=== PATIENT | male | born 1975 | race American Indian/Alaskan Native ===

== ENCOUNTER 2020-12-10 19:52 | Emergency (ER) | payer SELFPAY ==
[2020-12-10 20:25] VITALS: BP 105/69
--- NOTE | 2020-12-10 20:27 | Event Note ---
ED Screening Note ED Screening Note: 45 y/o health male presents to ED c/o of syncope while riding in car with sister just prior to arrival with no preceeding symptoms This initial assessment/diagnostic orders/clinical plan/treatment(s) is/are subject to change based on patients health status, clinical progression and re- assessment by fellow clinical providers in the ED. Further treatment and workup at subsequent clinical providers discretion. Patient/guardian urged not to elope from the ED as their condition may be serious if not clinically assessed and managed. Initial orders include: syncope evaluation.
[2020-12-10 20:57] LABS: Basophils # (Auto) 0.2 K/mm3 (0.0-0.1); Basophils % (Auto) 2.7 % (0.0-1.8); Eosinophils % (Auto) 0.5 % (0.0-4.3); Hematocrit 41.4 % (35.5-45.6); Hemoglobin 13.9 gm/dl (11.8-15.2); Lymphocytes # (Auto) 0.7 K/mm3 (1.2-5.4); Lymphocytes % (Auto) 9.8 % (13.4-35.0); Mean Corpuscular HGB Conc 34 % (32-34); Mean Corpuscular Volume 96 fl (84-94); Monocytes # (Auto) 0.5 K/mm3 (0.0-0.8); Monocytes % (Auto) 7.1 % (0.0-7.3); Platelet Count 228 K/mm3 (140-440); Red Blood Count 4.29 M/mm3 (3.65-5.03); Red Cell Distribution Width 14.2 % (13.2-15.2)
--- NOTE | 2020-12-10 21:00 | XRay Report ---
CHEST 2 VIEWS INDICATION / CLINICAL INFORMATION: Syncope. Hypotension. COMPARISON: None available. FINDINGS: SUPPORT DEVICES: None. HEART / MEDIASTINUM: The heart size and pulmonary vasculature are normal. The aorta is normal in tyree bell. LUNGS / PLEURA: No significant pulmonary or pleural abnormality. No pneumothorax. ADDITIONAL FINDINGS: No significant additional findings. IMPRESSION: No acute findings. Signer Name: Oscar Powers MD Signed: 12/10/2020 8:55 PM Workstation Name: [id number]
[2020-12-10 21:06] LABS: Alanine Aminotransferase 14 units/L (7-56); Albumin 3.5 g/dL (3.9-5); Blood Urea Nitrogen 7 mg/dL (9-20); Calcium 8.4 mg/dL (8.4-10.2); Hemolysis Index 13
[2020-12-10 21:07] LABS: BUN/Creatinine Ratio 10
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
--- NOTE | 2020-12-11 00:05 | Emergency Department Report ---
ED Syncope HPI - General Chief Complaint: Syncope Stated Complaint: SYNCOPE Time Seen by Provider: 12/10/20 23:53 Source: patient, EMS - History of Present Illness Initial Comments: Patient is 45 years old male with no significant past medical history. Patient brought to the emergency room via EMS for evaluation of 1 episode of syncope happened while he was sitting in a car. Patient stated that he think that he passed out for a minute. EMS stated that patient initially was hypertensive received normal saline. Patient denied any symptoms prior to this episode. He denied any previous history of syncope. Patient denied any chest pain, shortness of breath, headache, neck pain, weakness numbness or tingling sensation. Patient stated that he was not eating well yesterday. Timing/Prior Episodes: no prior history, single episode today Precipitating Factors: Positive: none Context: sitting Loss of Consciousness: brief (seconds) Current Symptoms: back to normal - Related Data Allergies/Adverse Reactions: Allergies No Known Allergies Allergy (Unverified 12/10/20 20:23) ED Review of Systems ROS: Stated complaint: SYNCOPE Other details as noted in HPI Comment: All other systems reviewed and negative Constitutional: denies: chills, fever Respiratory: denies: cough, shortness of breath, SOB with exertion, SOB at rest Cardiovascular: denies: chest pain, palpitations Gastrointestinal: denies: abdominal pain, nausea, vomiting, diarrhea, constipation, hematemesis, melena Neurological: denies: headache, weakness, numbness, paresthesias, confusion, abnormal gait ED Past Medical Hx - Past Medical History Previous Medical History?: Yes Additional medical history: "bad hip" - Social History Smoking Status: Never Smoker Substance Use Type: Alcohol ED Physical Exam - General Limitations: No Limitations General appearance: alert, in no apparent distress - Head Head exam: Present: atraumatic, normocephalic, normal inspection - Eye Eye exam: Present: normal appearance, PERRL - ENT ENT exam: Present: mucous membranes dry - Neck Neck exam: Present: normal inspection, full ROM. Absent: tenderness, meningismus - Respiratory Respiratory exam: Present: normal lung sounds bilaterally - Cardiovascular Cardiovascular Exam: Present: regular rate, normal rhythm, normal heart sounds - GI/Abdominal GI/Abdominal exam: Present: soft, normal bowel sounds. Absent: distended, tenderness, guarding, rebound, rigid, organomegaly, mass, bruit, pulsatile mass, hernia - Extremities Exam Extremities exam: Present: normal inspection, full ROM, normal capillary refill. Absent: tenderness, pedal edema, joint swelling, calf tenderness - Back Exam Back exam: Present: normal inspection, full ROM. Absent: CVA tenderness (R), CVA tenderness (L) - Neurological Exam Neurological exam: Present: alert, oriented X3, CN II-XII intact, normal gait, reflexes normal - Psychiatric Psychiatric exam: Present: normal mood - Skin Skin exam: Present: warm, intact, normal color ED Course Vital Signs 12/10/20 20:23 Temperature 98.0 F Pulse Rate 68 Respiratory 18 Rate Blood Pressure 105/69 O2 Sat by Pulse 97 Oximetry ED Medical Decision Making - Lab Data Result diagrams: 12/10/20 20:31 12/10/20 20:31 - EKG Data -: EKG Interpreted by Nv EKG shows normal: sinus rhythm Rate: normal - EKG Data Interpretation: no acute changes - Radiology Data Radiology results: report reviewed - Medical Decision Making Patient is 45 years old male with no significant past medical history. Patient brought to the emergency room via EMS for evaluation of 1 episode of syncope happened while he was sitting in a car. Patient stated that he think that he passed out for a minute. EMS stated that patient initially was hypertensive received normal saline. Patient denied any symptoms prior to this episode. He denied any previous history of syncope. Patient denied any chest pain, shortness of breath, headache, neck pain, weakness numbness or tingling sensation. Patient stated that he was not eating well yesterday. Labs reviewed and is unremarkable. CT brain is negative for acute finding. Chest x-ray is unremarkable. Patient stated that he is feeling much better and he is asking for food. No clinical evidence of stroke, PE or AR. Advised patient to follow-up with his primary doctor in the next 2 to 3 days and to return to the ER if he develop any new symptoms. Critical care attestation.: If time is entered above; I have spent that time in minutes in the direct care of this critically ill patient, excluding procedure time. ED Disposition Clinical Impression: Syncope and collapse Disposition: DC-01 TO HOME OR SELFCARE Is pt being admited?: No Condition: Stable Instructions: Syncope (ED), Syncope, [id number] Referrals: PRIMARY CARE, [Primary Care Provider] - 3-5 Days
== END 2020-12-11 00:17 | disposition home or self-care (01) ==
LOC: ED 19:52
DX: R55 Syncope and collapse (principal)
CPT/HCPCS: 36415; 70450; 71046; 80053; 83735; 84484; 85025; 93005